=== PATIENT | female | born 1990 | race Caucasian/White ===

== ENCOUNTER 2016-08-11 15:07 | Emergency (ER) | payer OTHER ==
--- NOTE | 2016-08-11 16:14 | ER NURSING DOCUMENTATION ---
Nurse's Notes [facility] [place] Name:Rika Cade Age:26 yrs Sex:Female :1990 Arrival Date:08/11/2016 Time:15:07 Bed6 Private MD: Diagnosis:Lower Leg Contusion Presentation: 08/11 15:15 Acuity: ELH[facility] 3 st 15:18 Presenting complaint: Patient states: kicked in left knee by a horse. Pt. has small sc1 amount of redness and swelling below her patella. Transition of care: patient was not received from another setting of care. Notified ED Physician of patient's arrival and CC Scar Han notified. 15:18 Method Of Arrival: Private Vehicle sc1 Triage Assessment: 15:19 General: Appears in no apparent distress, well developed, well nourished, well groomed, sc1 Behavior is cooperative, pleasant. Pain: Complains of pain in left knee. Musculoskeletal: Circulation, motion, and sensation intact Capillary refill < 3 seconds Range of motion intact in all extremities. Swelling present in left knee. Historical: - Allergies: No known drug Allergies; - Home Meds: 1. beninate 2. ProAir HFA inhalation 3. Amoxicillin-Pot Clavulanate Oral - PMHx: Asthma; - PSHx: Tonsillectomy; - Ebola Screening: : Patient negative for fever greater than or equal to 101.5 degrees Fahrenheit, and additional compatible Ebola Virus Disease symptoms. Patient denies exposure to infectious person. Patient denies travel to an Ebola-affected area in the 21 days before illness onset. No symptoms or risks identified at this time. . - Immunization history: Flu Vaccine >1 year. Screenin:21 Infectious Disease Risk None. Abuse screen: Denies threats or abuse. Nutritional sc1 screening: No deficits noted. Vital Signs: 15:20 BP 111 / 70; Pulse 78; Resp 16; Temp 98.5; Pulse Ox 94% on R/A; sc1 ED Course: 15:10 Patient arrived in ED. ama 15:[address] 15:18 Stephanie Rachel, JUAN is Primary Nurse. oh1 15:18 Baldo Abbott MD is Attending Physician. 15:21 Notified ED Physician of patient's arrival and chief complaint. Dr. Abbott notified. Arm sc1 band placed on Bed in low position Call Light in Reach. Affected limb iced. 15:32 Port Xray Completed. pm1 16:02 Bryson Mercado MD, Edgar Durand DO is Referral Physician. pema 16:12 Crutch training done. Ankit wrap to left knee. sc1 Administered Medications: No medications were administered Outcome: 16:02 Discharge ordered by . 16:13 Discharged to home ambulatory, with crutches. sc1 16:13 Condition: stable 16:13 Discharge instructions given to patient, Instructed on crutch walking, discharge instructions, follow up and referral plans. Demonstrated understanding of instructions, crutch walking. 16:14 Patient left the ED. sc1 Signatures: Marcella Valdes RN RN st Campbell, Sandy, RN RN sc1 Baldo Abbott MD MD jm Abbott, Virginia Kaiser pm1 Anders Mendoza, Reg Reg ama
--- NOTE | 2016-08-11 16:14 | ER PHYSICIAN DOCUMENTATION ---
Physician Documentation [facility] Name:Rika Cade Age:26 yrs Sex:Female :1990 Arrival Date:08/11/2016 Time:15:07 Bed6 Private MD: Baldo Pressley Disposition: 08/11/16 16:02 Discharged to Home/Self Care. Impression: Lower Leg Contusion. - Condition is Good. - Discharge Instructions: CONTUSION, Lower Extremity. - Medical Reconciliation form form. - Follow up: Bryson Mercado MD, Edgar Durand DO; When: 1 week; Reason: Continuance of care. - Problem is new. - Symptoms have improved. HPI: 08/11 16:03 This 26 yrs old Female presents to ER via Private Vehicle with complaints of jm Leg Injury - LEFT. 16:03 The patient presents with a contusion, an injury. The complaints affect the lateral jm aspect of left knee. Context: resulted from a direct blow, horse kick, the patient can partially bear weight. Onset: The symptom(s)/episode began/occurred just prior to arrival, today. Pt can walk, but it hurts. Historical: - Allergies: No known drug Allergies; - Home Meds: 1. beninate 2. ProAir HFA inhalation 3. Amoxicillin-Pot Clavulanate Oral - PMHx: Asthma; - PSHx: Tonsillectomy; - Ebola Screening: : Patient negative for fever greater than or equal to 101.5 degrees Fahrenheit, and additional compatible Ebola Virus Disease symptoms. Patient denies exposure to infectious person. Patient denies travel to an Ebola-affected area in the 21 days before illness onset. No symptoms or risks identified at this time. . - Immunization history: Flu Vaccine >1 year. ROS: 16:07 Constitutional: Negative for fever. jm 16:07 MS/extremity: Positive for injury or acute deformity, contusion, pain. 16:07 Skin: Positive for ecchymosis. 16:07 Neuro: Positive for gait disturbance. Exam: 16:07 Constitutional: The patient appears alert, awake. 16:07 Musculoskeletal/extremity: Extremities: grossly normal except: noted in the lateral aspect of left knee: pain, swelling, tenderness, ROM: full active range of motion, full passive range of motion, Weight bearing: can bear weight with assistance only, hobbles- needs crutches. . 16:07 Skin: injury, contusion(s), that are superficial, of the lateral aspect of left knee, no rash present. 16:07 Neuro: Mentation: is normal, Gait: needs assistance, uses crutches. Vital Signs: 15:20 BP 111 / 70; Pulse 78; Resp 16; Temp 98.5; Pulse Ox 94% on R/A; sc1 MDM: 15:12 Patient medically screened. 16:08 Differential diagnosis: contusion, fx. Data reviewed: vital signs, nurses notes, radiologic studies, and as a result, I will *Transfer Patient. Test interpretation: by ED physician or midlevel provider: plain radiologic studies. Counseling: I had a detailed discussion with the patient and/or guardian regarding: the historical points, exam findings, and any diagnostic results supporting the discharge/admit diagnosis, radiology results, the need for outpatient follow up, with the patient's primary care provider, a orthopedic surgeon. ED course: No fx of the fib head noted. . 08/11 16:16 Order name: KNEE; [address] [place] [id number] [facility] 08/11 15:25 Order name: Ice Packs; Complete Time: 15:29 pema Dispensed Medications: No medications were administered Signatures: Marcella Valdes, RN Stephanie Jesus RN RN sc1 Baldo Abbott MD MD
--- NOTE | 2016-08-11 16:15 | RADIOLOGY REPORT ---
HISTORY: Left knee injury COMPARISON: None. FINDINGS: 4 views of the knee obtained. There is no fracture. There is no lytic or sclerotic lesion. The armond nt spaces are adequately maintained and in alignment. There is no joint effusion. No opaque foreign b luz marina or pathologic soft tissue calcifications. IMPRESSION: Negative left knee. Final Electronic Signature: This report was electronically signed by Robert Macdonald MD on 08/11/2016 4: 13 PM. [facility] /
== END 2016-08-11 16:14 | disposition home or self-care (01) ==
LOC: ER 15:07
DX: S80.02XA Contusion of left knee, initial encounter (principal); W55.12XD Struck by horse, subsequent encounter; Y92.838 Other recreation area as the place of occurrence of the external cause; Y93.K9 Activity, other involving animal care; Y99.0 Civilian activity done for income or pay
CPT/HCPCS: 99283